=== PATIENT | female | born 1965 | race Two or more races ===

== ENCOUNTER 2020-10-04 13:09 | Emergency (ER) | payer OTHER ==
[~2020-10-04] VITALS: Ht 165.1 cm; Wt 65.3 kg
[~2020-10-04 13:09] MED LIST: ATORVASTATIN CA20 MG PO; CALCIUM PO; VITAMIN D310 MCG/1 M PO
[2020-10-04] MEDS ORDERED: TOPROL XL25 M1 PO (16:48)
== END 2020-10-04 16:59 | disposition home or self-care (01) ==
LOC: ER 13:09
DX: I48.91 Unspecified atrial fibrillation (principal)

== ENCOUNTER 2020-11-13 09:58 | Day surgery (SDC) | payer OTHER ==
[~2020-11-13 09:58] MED LIST changes: +TOPROL XL25 M1 PO; +TOPROL XL50 M1 PO
== END 2020-11-15 23:00 | disposition home or self-care (01) ==
LOC: CIR.AMB 09:58
PROVIDERS: ATTEND Obstetrics & Gynecology
DX: N84.0 Polyp of corpus uteri (principal); Z20.822 Contact with and (suspected) exposure to COVID-19